=== PATIENT | female | born 1985 | race Caucasian/White ===

== ENCOUNTER 2016-02-16 15:56 | Emergency (ER) | payer OTHER ==
[2016-02-16] MEDS ORDERED: METOCLOPRAMIDE HCL 5 MG/ML 2ML VIAL ONE (16:45)
[2016-02-16] MEDS ORDERED: PANTOPRAZOLE SODIUM 40 MG VIAL IV ONE (16:45)
[2016-02-16] MEDS ORDERED: ONDANSETRON 4 MG/2ML 2 ML VIAL ONE (16:45)
[2016-02-16] MEDS ORDERED: SODIUM CHLORIDE 0.9% 1,000 ML ONE ×2 (16:45→17:25)
[2016-02-16] MEDS ORDERED: MORPHINE SULFATE 4 MG/ML SYRINGE ONE (16:46)
[2016-02-16 16:48] LABS: ABSOLUTE NEUTROPHIL COUNT 4.6 K/mm3 (1.8-7.7); BASO % 0.4 % (0.2-1.0); EOS % 0.4 % (0.9-2.9); HEMATOCRIT 43.2 % (37.0-47.0); IMM NEUT% 0.2 % (0-1); LYMPH % 32.4 % (15-45); MEAN CELL VOLUME 89.4 fl (81.0-99.0); MEAN CORPUSCULAR HGB CONC 32.4 g/dl (33.0-37.0); MEAN PLATELET VOLUME 8.2 fl (7.4-10.4); MONO # 1.6 (0.0-0.8); MONO % 17.5 % (4-12); NEUT % 49.1 % (43-75); PLATELET COUNT 312 K/mm3 (130-400); RED CELL DISTRIBUTION WIDTH 12.3 % (11.5-14.5)
[2016-02-16 17:06] LABS: ALB/GLOB RATIO 1.1 (>1.0); ALBUMIN 3.9 gm/dL (3.5-5.7); CALCIUM 9.4 mg/dL (8.6-10.3)
[2016-02-16] MEDS ORDERED: HYDROCODONE/ACETAMINOPHEN 5/325MG TABLET ONE (19:14)
[2016-02-16] MEDS ORDERED: ONDANSETRON 4 MG ODT TAB ONE (19:14)
== END 2016-02-16 19:22 | disposition home or self-care (01) ==
LOC: ED 15:56
DX: K29.00 Acute gastritis without bleeding (principal); R11.2 Nausea with vomiting, unspecified
CPT/HCPCS: 83690; 84703; 85025; 80053; 83735; 96375 ×3; 99284 ×2; 96374; 96361 ×2; J2270; C9113; J2765; J2405; J7030 ×2; A9270 ×2

== ENCOUNTER 2016-02-27 13:16 | Emergency (ER) | payer OTHER ==
[2016-02-27 14:01] LABS: SPECIFIC GRAVITY 1.015 (1.001-1.030); URINE APPEARANCE CLEAR; URINE BILIRUBIN NEGATIVE (NEGATIVE); URINE BLOOD 1+ (NEGATIVE); URINE COLOR YELLOW; URINE GLUCOSE (UA) NEGATIVE (NEGATIVE); URINE LEUKOCYTE ESTERASE NEGATIVE (NEGATIVE); URINE NITRITE NEGATIVE (NEGATIVE); URINE PROTEIN 3+ (NEGATIVE); URINE UROBILINOGEN NORMAL (0-1 mg/dl)
[2016-02-27 14:16] LABS: URINE BACTERIA FEW
[2016-02-27] MEDS ORDERED: SODIUM CHLORIDE 0.9% 1,000 ML ONE (15:56)
[2016-02-27] MEDS ORDERED: PROMETHAZINE HCL 25 MG/ML VIAL ONE (15:56)
[2016-02-27] MEDS ORDERED: MORPHINE SULFATE 4 MG/ML SYRINGE ONE (15:56)
[2016-02-27 16:11] LABS: ABSOLUTE NEUTROPHIL COUNT 5.1 K/mm3 (1.8-7.7); BASO % 0.3 % (0.2-1.0); EOS % 0.1 % (0.9-2.9); HEMATOCRIT 39.9 % (37.0-47.0); IMM NEUT% 0.4 % (0-1); LYMPH # 1.2 (1.0-4.8); LYMPH % 15.6 % (15-45); MEAN CELL VOLUME 89.3 fl (81.0-99.0); MEAN CORPUSCULAR HEMOGLOBIN 29.1 pg (27.0-31.0); MEAN CORPUSCULAR HGB CONC 32.6 g/dl (33.0-37.0); MEAN PLATELET VOLUME 8.4 fl (7.4-10.4); MONO # 1.4 (0.0-0.8); MONO % 17.7 % (4-12); NEUT % 65.9 % (43-75); PLATELET COUNT 270 K/mm3 (130-400); RED CELL DISTRIBUTION WIDTH 12.2 % (11.5-14.5)
[2016-02-27 16:24] LABS: ALB/GLOB RATIO 1.1 (>1.0); ALBUMIN 3.7 gm/dL (3.5-5.7); CALCIUM 9.5 mg/dL (8.6-10.3)
[2016-02-27] MEDS ORDERED: ALBUTEROL NEB 2.5 MG/3 ML VIAL.NEB NEB ONE (19:27)
== END 2016-02-27 18:06 | disposition home or self-care (01) ==
LOC: ED 13:16
DX: R10.9 Unspecified abdominal pain (principal); R11.2 Nausea with vomiting, unspecified; E26.81 Bartter's syndrome; Z94.0 Kidney transplant status
CPT/HCPCS: 83690; 85025; 87086; 80053; 81001; 96375; 99283 ×2; 96374; 96361; J2270; J2550; J7030